=== PATIENT | male | born 1950 | race Caucasian/White ===

== ENCOUNTER 2025-01-28 07:02 | Emergency (ER) | payer MEDICARE ==
[~2025-01-28] VITALS: Ht 177.8 cm; Wt 90.1 kg
[2025-01-28] MEDS ORDERED: ATOR80TA59 PO (07:18)
[2025-01-28] MEDS ORDERED: CLOP75TA99 PO (07:18)
[2025-01-28] MEDS ORDERED: METO1TAB87 PO (07:18)
[2025-01-28] MEDS ORDERED: METF10004 PO (07:18)
[2025-01-28] MEDS ORDERED: OMEP10CASR PO (07:18)
[2025-01-28 08:17] VITALS: BP 161/87
[2025-01-28] MEDS: CHLORTHALIDONE 12.5 MG PER 1/2 TABLET PO ONE (08:17)
[2025-01-28 08:31] LABS: CALCIUM LEVEL 9.6 MG/DL (8.3-10.6); CARBON DIOXIDE LEVEL 29 MMOL/L (20-31); CHLORIDE LEVEL 101 MMOL/L (98-107); CREATININE FOR GFR 0.80 MG/DL (0.70-1.30); GLOMERULAR FILTRATION RATE > 90.0 (>42); POTASSIUM SERUM 3.9 MMOL/L (3.5-5.1); SODIUM LEVEL 140 MMOL/L (136-145)
[2025-01-28] MEDS ORDERED: HOME MED LIST COMPLETE! XX SCH (08:55)
[2025-01-28] MEDS ORDERED: OMEP-173 PO (08:55)
[2025-01-28] MEDS ORDERED: VITA200031 PO (08:55)
[2025-01-28] MEDS ORDERED: ASPI81TA26 PO (08:55)
[2025-01-28] MEDS ORDERED: METO1TAB32 PO (08:55)
[2025-01-28] MEDS ORDERED: CHLO125TA PO (09:56)
[2025-01-28 10:15] VITALS: BP 142/79; TEMP 96.9; O2SAT 98
== END 2025-01-28 10:30 | disposition home or self-care (01) ==
LOC: M ED 07:02
DX: I10 Essential (primary) hypertension (principal); E11.9 Type 2 diabetes mellitus without complications; Z95.1 Presence of aortocoronary bypass graft; Z79.82 Long term (current) use of aspirin; Z79.02 Long term (current) use of antithrombotics/antiplatelets; Z79.899 Other long term (current) drug therapy; Z88.2 Allergy status to sulfonamides